=== PATIENT | male | born 1970 | race African-American/Black ===

== ENCOUNTER 2022-03-26 16:27 | Emergency (ER) | payer BC, SELFPAY ==
[2022-03-26 16:41] VITALS: BP 154/94; PULSE 109; RESP 16; TEMP 37.2; O2SAT 99
--- NOTE | 2022-03-26 16:42 | ED.URI ---
HPI - URI/Sore Throat General Chief Complaint: Upper Respiratory Infection Stated Complaint: Cough/Fever/Bodyache/Neck Pain Time Seen by Provider: 03/26/22 16:42 Source: patient Mode of arrival: ambulatory Limitations: no limitations History of Present Illness HPI Narrative: 52-year-old male presents with complaint of cough, nasal congestion, sore throat COVID body aches, chills and fever for 5 days. Reports that fever has resolved. Today he states that he coughed and strained left side of his neck. Has not taking any [id number] medications to treat his neck pain. Requesting stronger pain medication to treat his neck symptoms. Denies chest pain and shortness of breath. Taking Delsym to treat his cough. Ambulatory with steady gait. All systems reviewed and negative except as noted above. Related Data Allergies Allergy/AdvReac Type Severity Reaction Status Date / Time No Known Allergies Allergy Verified 03/26/22 16:38 Review of Systems Review of Systems: CONSTITUTIONAL: Denies fever, chills, or sweats. EYES: Denies visual changes, redness, or discharge. ENT: Reports rhinorrhea, congestion, sore throat. Denies otalgia. CARDIOVASCULAR: Denies chest pain, palpitations, or edema. RESPIRATORY: reports cough. Denies dyspnea. GASTROINTESTINAL: Denies abdominal pain, nausea, vomiting, or diarrhea. GENITOURINARY: Denies dysuria or hematuria. SKIN: Denies rash or itching. MUSCULOSKELETAL: Denies back pain, joint pain, or myalgia. NEUROLOGIC: Denies headache, numbness, or weakness. PSYCHIATRIC: Denies anxiety or depression. All other systems reviewed are negative, except as documented in HPI. PMFSH Comments At time of signature, agree with nursing past medical, surgical, social and family history. There is no relevant family history pertinent to the presenting complaint. Exam Narrative: GENERAL: This is a well-nourished, well-developed patient, in no apparent distress. HEAD: normocephalic, atraumatic. EYES: PERRL. Sclera clear/white. Vision is grossly intact. EARS: External ears normal, auditory canals clear and without drainage, TMs normal without perforation. Hearing grossly intact. NOSE: External nose normal with no obvious nasal discharge, nares without redness, no rhinorrhea. THROAT: Mucous membranes moist, erythema posterior pharynx. NECK: Neck supple, without lymphadenopathy, masses or thyromegaly. Tenderness and spasm to left trapezius muscle. Decreased range of motion due to pain. CARDIOVASCULAR: Regular rate and rhythm without murmurs, gallops, or rubs. RESPIRATORY: Clear to auscultation. Breath sounds equal bilaterally. No wheezes, rales, or rhonchi. SKIN: warm, Dry, intact with no suspicious lesions or rash, good texture and turgor. NEURO: awake, alert, and oriented to person, place and time. There were no obvious focal neurologic abnormalities. EXTREMITIES: No joint tenderness, effusion, or edema noted. Course Course Level of Care: Express Care Visit Vital Signs Vital signs: Vital Signs Temperature 37.2 C 03/26/22 16:41 Pulse Rate 109 H 03/26/22 16:41 Respiratory Rate 16 03/26/22 16:41 Blood Pressure 154/94 H 03/26/22 16:41 Pulse Oximetry 99 03/26/22 16:41 Oxygen Delivery Room Air 03/26/22 16:41 Temperature 37.2 C 03/26/22 16:41 Pulse Rate 109 H 03/26/22 16:41 Respiratory Rate 16 03/26/22 16:41 Blood Pressure 154/94 H 03/26/22 16:41 Pulse Oximetry 99 03/26/22 16:41 Oxygen Delivery Room Air 03/26/22 16:41 Reviewed MDM - URI/Sore Throat MDM Narrative Medical decision making narrative: Patient is aware of diagnosis, understands and agrees to treatment plan. Anticipatory guidance given. Patient agrees to follow-up as directed and is aware of reasons to seek care at the emergency department. Portions of this record may have been created with voice recognition software positive for COVID today. Discussed COVID diagnosis with patient. Lab Data
== END 2022-03-26 17:14 | disposition home or self-care (01) ==
PROVIDERS: Emergency Provider Nurse Practitioner Family; PCP Internal Medicine
DX: U07.1 COVID-19 (principal); S16.1XXA Strain of muscle, fascia and tendon at neck level, initial encounter; X58.XXXA Exposure to other specified factors, initial encounter
CPT/HCPCS: 87081; 87426; 87804; 87880; 99203; C9803; G0463

== ENCOUNTER → 2022-09-18 11:26 | Outpatient (CLI) | payer OTHER, SELFPAY ==
--- NOTE | ~2022-09-18 | XR_ITS ---
EXAMINATION: XR shoulder RT min 2V DATE: 09/18/2022 11:50 INDICATION: Right shoulder injury. TECHNIQUE: 4 views of right shoulder were obtained. COMPARISON: None. FINDINGS: Bone alignment is normal. No fracture. Joint spaces are well maintained. IMPRESSION: 1. Normal right shoulder. Reviewed, dictated and finalized at location A. IMPRESSION: 1. Normal right shoulder.
--- NOTE | ~2022-09-18 | XR_ITS ---
EXAM: XR lumbar spine 2-3V DATE: 09/18/2022 11:49 HISTORY: LOW BACK PAIN . COMPARISON: None available. FINDINGS: Mild scoliosis 5 nonrib-bearing lumbar-type vertebral bodies. Pedicles intact. 2 mm retroli sthesis at L3-4. Minimal anterior wedge deformity at L1, presumably physiologic. Vertebral body heigh ts preserved. Mild disc space narrowing at L4-5. Mild multilevel marginal osteophytosis. Mild lower l umbar facet arthropathy. No fracture or dislocation. IMPRESSION: Minimal, grade 1 retrolisthesis at L3-4. Mild multilevel lumbar degenerative disc disease and lower lumbar facet arthropathy. Reviewed, dictated and finalized at location K. IMPRESSION: Minimal, grade 1 retrolisthesis at L3-4. Mild multilevel lumbar deg enerative disc disease and lower lumbar facet arthropathy.
== END ==
PROVIDERS: PCP Family Medicine; Visit Provider Physician Assistant
DX: M54.50 Low back pain, unspecified (principal); M51.36 Other intervertebral disc degeneration, lumbar region; M47.816 Spondylosis without myelopathy or radiculopathy, lumbar region
CPT/HCPCS: 72100; 73030

== ENCOUNTER 2022-09-29 01:11 | Day surgery (SDC) | payer OTHER, SELFPAY ==
[2022-09-21 10:56] VITALS: BMI 25.3
--- NOTE | 2022-09-21 11:01 | PC.NURSE ---
Report to the Outpatient Waiting Room, entrance under the green pavilion located off [facility], at time 0630 on date 09/29/22. Planned Procedure Time: 0830. Time changes happen often and if your time is changed the preop area will call you the afternoon before. - You and your visitor will be asked to self-screen and do not enter if you have any COVID symptoms. - A mask is optional within the hospital at this time. Patients may have clear liquids (water, carbonated beverages, clear teas, apple juice) until 3 hours prior to surgery with a maximum of 20 ounces. - No food from midnight until time of surgery Take the following medications with a SIP of water the morning of surgery: N/A DO NOT STOP ANY OF YOUR OTHER PRESCRIPTION MEDICATIONS PRIOR TO SURGERY ?EXCEPT THE FOLLOWING Medications to discontinue per physician: N/A Date to take last dose: N/A Please no make-up, nail vietnamese, hairspray, perfume, deodorant, or body powder the day of surgery. No jewelry (including any body piercings) or valuables the day of surgery, leave them at home. Please take a shower or bath the night before, or the morning of, surgery with an antibacterial soap. Wear comfortable, loose fitting clothing. - Jewelry must be removed prior to entering the operating room. Rings and piercings that are not removed may be cut off. - The hospital will not accept responsibility for valuables. - Please leave all valuables, including medications, at home the day of surgery. If you are going home after surgery, a licensed hire car driver must drive you home. - NO public transportation without another adult if you receive anesthesia. - We recommend that an adult stay with you for 24 hours following discharge. - We also recommend that you do not drive, make important decision, drink alcoholic beverages, or take any drugs that were not prescribed by your health care provider for at least 24 hours after your discharge time. Follow any additional instructions given to you from your surgeon. If you or anyone in your household have experienced Covid symptoms in the past week, please notify your surgeon or the nurse liaison at the phone number below for possible testing. Telephone instructions given to PT - TOMMY NI and asked if any additional questions and then verbalized understanding. Patient advised to call surgeon office or pre surgery nurse liaison [phone] if any additional questions.
[2022-09-29 06:37] VITALS: BP 132/81; PULSE 68; RESP 16; TEMP 36.3; O2SAT 100
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
--- NOTE | 2022-09-29 08:29 | WPDHPUPDATE1 ---
History and Physical Update Update Date/Time: 09/29/22 08:29 History and Physical has been reviewed, including an updated exam of the patient. There are NO changes in the patient's condition. Risks, benefits, and alternatives have been discussed and questions answered. Patient agrees to proceed with procedure.
[2022-09-29] MEDS: LACTATED RINGERS 1,000 ML 30 ML IV CONT (08:45)
[2022-09-29] MEDS: ceFAZolin 2 GM/D5W 50 ML 2 GM/50 ML BAG IVPB (08:52)
[2022-09-29] MEDS: BUPIVACAINE/EPINEPHRINE 0.25% 50 ML VIAL 20 ML INFILTRATE (09:09)
[2022-09-29 09:30] VITALS: BP 126/64; PULSE 73; RESP 14; O2SAT 99
--- NOTE | 2022-09-29 09:42 | W.PM.PROC2 ---
Procedure Note - Detailed Date of Procedure 09/29/22 Pre-op Diagnosis skin cyst on back Post-op Diagnosis Same Procedure Performed Excision 2 cm skin cyst of the back with no margin, 5 cm layered closure Surgeon Donta Stroud MD Clinical Research Coordinator Venkat BRYAN Anesthesia General (G IV S) and Local (0.25% Marcaine with epinephrine) Indications Patient had an infected cyst on the right upper back lateral to the scapula. This was treated with doxycycline and has greatly reduced in size. It is no longer tender. He has had cyst like this before and they have had to be incised and drained. He would like to have this cyst removed to avoid potential infection or abscess in the future. He is taken to surgery now for that purpose. Findings Cyst seems smaller than it was in the office. It measured 2 cm in greatest diameter. There was no evidence of abscess. Description of Procedure Patient was taken to surgery. He was placed in left lateral decubitus position. The area of the cyst and the anticipated incision had been marked on the skin in the preoperative holding area. The area was prepped and draped. Local was infiltrated in to the anticipated ellipse around the cyst. The deeper subcutaneous tissues were infiltrated as well. The ellipse was created with the scalpel. We were careful to avoid getting into the cyst at the widest portion of the ellipse. We dissected through the skin and then excised the entire cyst with some subcutaneous tissue removing it completely with the overlying skin. I measured the cyst. Its widest dimension was 2 cm. I measured the wound defect and it was 5 cm in length. The wound went to the muscular fascia and involved some of the muscular fascia. I used the cautery to achieve hemostasis. A deeper layer of 3-0 Vicryl interrupted sutures were placed. Subcuticular interrupted 3-0 Vicryl sutures were used to loosely approximate the skin. Finally the skin was closed with a running 4-0 Monocryl skin suture. The wound was dressed with Exofin surgical adhesive. The patient was awakened and taken to recovery in good condition. Sponge needle counts were correct x2. Estimated Blood Loss -1 Drains No Packing No Pathology Yes (Skin cyst of the back) Complications No immediate complications Condition Stable Disposition Same day [facility] Billing Surgery - Charge Forward: Surgery Billing (Excision skin cyst of the back 2 cm, no margin. 5 cm layered closure.)
[2022-09-29 10:15] VITALS: BP 106/63; PULSE 61; RESP 16
== END 2022-09-29 10:30 | disposition home or self-care (01) ==
PROVIDERS: PCP Family Medicine; Visit Provider Surgery
PROC: (CPT 11402; principal; 2022-09-29 08:30)
DX: L72.9 Follicular cyst of the skin and subcutaneous tissue, unspecified (principal)
CPT/HCPCS: 11402; 12032; 88305; J0690; J2250; J2704; J3010; J7120

== ENCOUNTER 2022-12-15 00:42 | Day surgery (SDC) | payer OTHER, SELFPAY ==
--- NOTE | 2022-12-06 12:50 | PC.NURSE ---
Report to the Outpatient Waiting Room, entrance under the green pavilion located off [facility], at time 1130 on date 12/15/22. Planned Procedure Time: 1330. Time changes happen often and if your time is changed the preop area will call you the afternoon before. - You and your visitor will be asked to self-screen and do not enter if you have any COVID symptoms. - A mask is optional within the hospital at this time. Patients may have clear liquids (water, carbonated beverages, clear teas, apple juice) until 3 hours prior to surgery with a maximum of 20 ounces. - No food from midnight until time of surgery Take the following medications with a SIP of water the morning of surgery: N/A DO NOT STOP ANY OF YOUR OTHER PRESCRIPTION MEDICATIONS PRIOR TO SURGERY ?EXCEPT THE FOLLOWING Medications to discontinue per physician: N/A Date to take last dose: N/A Please no make-up, nail tajik, hairspray, perfume, deodorant, or body powder the day of surgery. No jewelry (including any body piercings) or valuables the day of surgery, leave them at home. Please take a shower or bath the night before, or the morning of, surgery with an antibacterial soap. Wear comfortable, loose fitting clothing. - Jewelry must be removed prior to entering the operating room. Rings and piercings that are not removed may be cut off. - The hospital will not accept responsibility for valuables. - Please leave all valuables, including medications, at home the day of surgery. If you are going home after surgery, a licensed residential driver must drive you home. - NO public transportation without another adult if you receive anesthesia. - We recommend that an adult stay with you for 24 hours following discharge. - We also recommend that you do not drive, make important decision, drink alcoholic beverages, or take any drugs that were not prescribed by your health care provider for at least 24 hours after your discharge time. Follow any additional instructions given to you from your surgeon. If you or anyone in your household have experienced Covid symptoms in the past week, please notify your surgeon or the nurse liaison at the phone number below for possible testing. Telephone instructions given to PT - TOMMY NI and asked if any additional questions and then verbalized understanding. Patient advised to call surgeon office or pre surgery nurse liaison [phone] if any additional questions.
[2022-12-06 12:52] VITALS: BMI 25.7
[2022-12-15] VITALS (8 sets, daily range): BP systolic 111–133; BP diastolic 62–81; PULSE 55–86; RESP 12–21; TEMP 36.7–36.8; O2SAT 100
[2022-12-15] MEDS: LACTATED RINGERS 1,000 ML 30 ML IV CONT (11:55)
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
--- NOTE | 2022-12-15 13:44 | WPDHPUPDATE1 ---
History and Physical Update Update Date/Time: 12/15/22 13:44 History and Physical has been reviewed, including an updated exam of the patient. There are NO changes in the patient's condition. Risks, benefits, and alternatives have been discussed and questions answered. Patient agrees to proceed with procedure.
[2022-12-15] MEDS: ceFAZolin 2 GM/D5W 50 ML 2 GM/50 ML BAG IVPB (13:52)
[2022-12-15] MEDS: KETOROLAC 30 MG/ML VIAL (*BKC) IV PUSH (14:07)
[2022-12-15] MEDS: BUPIVACAINE/EPINEPHRINE 0.5% 50 ML VIAL 20 ML INFILTRATE (14:14)
--- NOTE | 2022-12-15 14:30 | W.PM.PROC2 ---
Procedure Note - Detailed Date of Procedure 12/15/22 Pre-op Diagnosis right buttock cyst Post-op Diagnosis Same Procedure Performed excisional biopsy right buttock cyst measuring 3 x 2 cm Surgeon Celina Obando MD Anesthesia General and Local Indications 52-year-old male with a right buttock cyst over last few years. Patient reports cyst grows in size and occasionally drains causing discomfort. Findings 3 x 2 cm right buttock cyst Description of Procedure The patient was taken the operating room and placed in the lateral position. After adequate induction of general anesthesia, the patient was prepped and draped in the normal sterile fashion. A time-out was then done to verify the patient's identity, as well as the procedure being performed. I began by localizing the area and around the cystic mass in the right buttock. Of note, there was a punctate opening over the central area of this cyst of the there was no drainage. An elliptical incision was then made in the skin overlying the mass to include the opening. This incision was taken down to the subcutaneous tissue and a cystic mass was noted. I was able to bluntly and sharply dissect around this mass. I was then able to excise the mass in full. It will now be sent to pathology for further review and measured approximately 3 x 2 cm. I then copiously irrigated the cavity and no other pathology was noted. Hemostasis was gained with the Bovie cautery. I then closed the subcutaneous tissue with 3-0 Vicryl suture. The skin was closed with 4-0 Monocryl subcuticular suture. Dermabond was placed on the wound. The patient tolerated the procedure well and was extubated postoperatively. He will be transferred to the recovery room in stable condition. Estimated Blood Loss 5 Drains No Packing No Pathology Yes Complications No immediate complications Condition Stable Disposition PACU [facility] Billing Surgery - Charge Forward: Surgery Billing
[2022-12-15] MEDS: fentaNYL CITRATE INJ (*CRX) 100 MCG/2 ML VIAL 25 MCG IV PUSH ×2 (14:56→15:06)
== END 2022-12-15 16:25 | disposition home or self-care (01) ==
PROVIDERS: PCP Family Medicine; Visit Provider Surgery
PROC: (CPT 11406; principal; 2022-12-15 13:30)
DX: L72.0 Epidermal cyst (principal)
CPT/HCPCS: 11406; 12032; 88305; J0690; J1885; J2250; J2405; J2704; J3010; J7120

== ENCOUNTER 2024-04-29 19:24 | Emergency (ER) | payer OTHER, SELFPAY ==
--- OUTSIDE RECORDS SUMMARY | 2024-04-29 19:27 | XMS_ITS ---
Author Organization [facility] Address [address] [place] [address] Care Team Providers Care Contact Lens Blocker And Cutter Name Role Phone Unavailable Unavailable Unavailable Surgery Details Not on file Complications Check Surgery Details section. Procedure Estimated Blood Loss Check Surgery Details section. Procedure Findings Check Surgery Details section. Procedure Specimens Taken Check Surgery Details section.
--- OUTSIDE RECORDS SUMMARY | 2024-04-29 19:27 | XMS_ITS | Clinical Summary ---
Author Organization [facility] Address [facility] [place] [address] Care Team Providers Care Fish Processor Name Role Phone Gadiel Shearer MD Primary Care Provider [phone] Allergies No known active allergies Medications gabapentin (NEURONTIN) 300 MG capsule Take 1 capsule (300 mg total) by mouth 3 (three) times daily. 10/30/2021 Active ketorolac (TORADOL) 10 MG tablet 09/29/2022 Active omega-3 acid (FISH OIL) 1000 MG capsule Take 500 mg by mouth daily. Active HYDROcodone-caitlyn taminophen (NORCO) 5-325 MG tablet Take 1 tablet by mouth every 8 (eight) hours as needed. 09/22/2022 Active Active Problems Problem Noted Date Diagnosed Date Cubital tunnel syndrome on left 11/03/2022 Overview (11/03/2022): Added automatically from request for surgery [id number] Bilateral carpal tunnel syndrome 10/05/2022 Ulnar neuropathy of both upper extremities 10/05 Family History Medical History Relation Comments Colon Cancer Mother Diabetes type I Sister Relation Status Comments Mother Sister Social History Tobacco Use Types Packs/Day Years Used Date Smoking Tobacco: Never Passive Smoke Exposure: Past Smokeless Tobacco: Never Alcohol Use Standard Drinks/Week Comments Never 0 (1 standard drink = 0.6 oz pur e alcohol) PHQ-2 Answer Date Recorded Patient Health Questionnaire-2 Score 0 10/05/2022 Sex and Gender Information Value Date Recorded Sex Assigned at Not on file Legal Sex Male 6:54 PM CDT Gender Identity Not on file Sexual Orientation Not on file Last Filed Vital Signs Vital Sign Reading Time Taken Comments Blood Pressure 132/80 11/18/2022 9:58 AM CDT Pulse 75 11/01/2022 9:32 AM CDT Temperature 36.9 C (98.4 F) 10/11/2022 3:03 PM CDT Respiratory Rate 17 10/05/2022 8:28 AM CDT Oxygen Saturation 98% 10/11/2022 3:03 PM CDT Inhaled Oxygen Concentration - - Weight 104.5 kg (230 lb 6.4 oz) 11/01/2022 9:32 AM CDT Height 200.7 cm (6' 7 ) 11/01/2022 9:32 AM CDT Body Mass Index 25.96 11/01/2022 9:32 AM CDT Plan of Treatment Health Maintenance Due Date Last Done Comments Colorectal Cancer Screening Colonoscopy (10 Years) 1971 Annual Physical 1974 Hepatitis C 1989 Hepatitis B Vaccines (1 of 3 - 19+ 3-dose series) 1990 Zoster Vaccines (1 of 2) 2021 PHQ-2 (Physician [place]) 10/06/2023 10/05/2022 COVID-19 Vaccine ( season) 2023 12/14/2021, 03/10/2021, 09/10/2020, Additional history exists Influenza Adult (#1) 2023 01/26/2019 PHQ-2 (Physician [place]) 03/14/2024 10/05/2022 DTaP, Tdap and Td Vaccines (2 - Td or Tdap) 12/05/2030 12/05/2020 Meningococcal B Vaccine Aged Out No l onger eligible based on patient's age to complete this topic Meningococcal Vaccine Aged Out No alfreda deep eligible based on patient's age to complete this topic Pneumococcal Vaccine: Pediatrics (0 to 5 Years) and At-Risk Patients (6 to 64 Years) Aged Out No longer eligible based on patient's age to complete this topic RSV Immunizations Under 20 Months Aged Out No longer eligible based on patient's age to complete this topic Insurance [facility] Care Teams Fish Processor Relationship Specialty Start Date End Date Gadiel Shearer MD [address] [address] PCP - General FAMILY PRACTICE 10/05/22
--- OUTSIDE RECORDS SUMMARY | 2024-04-29 19:27 | XMS_ITS | Encounter Summary ---
Author Organization [facility] Facility Care Team Providers Care Customer Sales Distributor Name Role Phone Do Chowdary MD Primary Care Provider [phone] Gadiel Shearer MD Primary Care Provider [phone] Encounter Details Date Type Department Care Team (Latest Contact Info) Description 11/11/2015 Orders Only [facility] CLINCONV ProviderGinette MD [address] [place] [id number] Social History Tobacco Use Types Packs/Day Years Used Date Smoking Tobacco: Never Sex and Gender Information Value Date Recorded Sex Assigned at Not on file Legal Sex Male 3:08 AM HANDER IN Gender Identity Not on file Sexual Orientation Not on file documented as of this encounter Plan of Treatment Upcoming Encounters Date Type Department Care Team (Latest Contact Info) Description 05/01/2024 10:15 AM HANDER IN Hospital Encounter [facility] [place] [address] [place] [id number] Ramesh Lang MD [address] [place] [address] DR THOMPSON [address] [place] [id number] 05/01/2024 10:15 AM HANDER IN - 05/01/2024 11:15 AM HANDER IN Surgery [facility] [place] [address] [place] [phone] Ramesh Lang MD [address] [place] [address] [place] [address] LEFT ELBOW MASS EXCISION Scheduled Procedures Name Priority Associated Diagnoses Date/Ti me EXCISION CYST/LESION/MASS - ARM Elbow mass, left Mass of finger of right hand 05/01/2024 10:15 AM HANDER IN EXCISION CYST/LESION/MASS - FINGER Elbow mass, left Mass of finger of right hand 05/01/2024 10:15 AM HANDER IN documented as of this encounter Procedures Procedure Name Priority Date/Time Associated Diagnosis Comments COLONOSCOPY - SCAN 11/11/2015 12 :00 AM CDT documented in this encounter Results * COLONOSCOPY - SCAN (11/11/2015 12:00 AM CDT) Narrative 11/11/2015 12:00 AM CDT Ordered by an unspecified provider. Historical Provider Final Res ult documented in this encounter Visit Diagnoses Not on filedocumented in this encounter Care Teams Customer Sales Distributor Relationship Specialty Start Date End Date Do Chowdary MD [address] [facility] [address] [place] [address] PCP - General Internal Medicine 12/13/20 09/21/22 Gadiel Shearer MD [address] [place] [address] PCP - General Family Medicine 09/22/22 documented as of this encounter
--- OUTSIDE RECORDS SUMMARY | 2024-04-29 19:27 | XMS_ITS | Encounter Summary ---
Author Organization [facility] Healthcare Address [address] [place] [address] Care Team Providers Care Asbestos Wire Finisher Name Role Phone Gadiel Shearer MD Primary Care Provider [phone] Reason for Visit * Reason Onset Date Comments work note 04/26/2024 Encounter Details Date Type Department Care Team (Late st Contact Info) Description 04/26/2024 Telephone [facility] Medical Group Hand Surgery [facility] [address] [place] [phone] Ramesh Lang MD [facility] [address] [id number] work note Social History Tobacco Use Types Packs/Day Years Used Date Smoking Tobacco: Never Smokeless Tobacco: Never Alcohol Use Standard Drinks/Week Comments Never 0 (1 standard drink = 0.6 oz pur e alcohol) AUDIT-C Answer Date Recorded Q1: How often do you have a drink containing alcohol? Never 04/24/2024 Q2: How many drinks containi ng alcohol do you have on a typical day when you are drinking? Patient does not drink Q3: How often do you have si x or more drinks on one occasion? Never 04/24/2024 PHQ-2 Answer Date Recorded PHQ-2 Total Score (If total score is 3 or more points, staff should administer the PHQ-9) 0 12/02/2023 Personal Safety Answer Date Recorded Have you ever been in or are you currently in a harmful physical or emotional relationship or is someone making you feel afraid or unsafe? Denies 02/07/2023 Sex and Gender Information Value Date Recorded Sex Assigned at Not on file Legal Sex Male 3:08 AM SILK SCREEN PRINTER HELPER Gender Identity Not on file Sexual Orientation Not on file documented as of this encounter Miscellaneous Notes * Telephone Encounter - Alivia Bruno MA - 04/27/2024 6:51 AM CST This was done. SCREEN PRINTER HELPER * Telephone Encounter - Coreen Feldman - 04/26/2024 11:02 AM CST Pt needs a note faxed to his employer stating he will be having hand surg may 01-may 14- Needs this done today or tomorrow SCREEN PRINTER HELPER documented in this encounter Plan of Treatment Upcoming Encounters Date Type Department Care Team (Latest Contact Info) Description 05/01/2024 10:15 AM SILK SCREEN PRINTER HELPER Hospital Encounter [facility] [place] [address] [place] [phone] Ramesh Lang MD [address] [place] [address] [address] TH[address]ON [address] [place] [phone] 05/01/2024 10:15 AM SILK SCREEN PRINTER HELPER - 05/01/2024 11:15 AM SILK SCREEN PRINTER HELPER Surgery [facility] [place] [address] [place] [phone] Ramesh Lang MD [address] [place] [address] [address] TH[address]ON [address] [place] [address] LEFT ELBOW MASS EXCISION Scheduled Procedures Name Priority Associated Diagnoses Date/Ti wv EXCISION CYST/LESION/MASS - ARM Elbow mass, left Mass of finger of right hand 05/01/2024 10:15 AM SILK SCREEN PRINTER HELPER EXCISION CYST/LESION/MASS - FINGER Elbow mass, left Mass of finger of right hand 05/01/2024 10:15 AM SILK SCREEN PRINTER HELPER documented as of this encounter Visit Diagnoses Not on filedocumented in this encounter Care Teams Asbestos Wire Finisher Relationship Specialty Start Date End Date Gadiel Shearer MD [address] [facility] [address] [address] PCP - General Family Medicine 09/22/22 documented as of this encounter
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
--- OUTSIDE RECORDS SUMMARY | 2024-04-29 19:27 | XMS_ITS | Encounter Summary ---
Author Organization [facility] Address [address] [place] [address] Care Team Providers Care Oven Attendant Name Role Phone Gadiel Shearer MD Primary Care Provider [phone] Reason for Referral * Cardiology (Routine) - Authorized Specialty Diagnoses / Procedures Referred By Contac t Referred To Contact Diagnoses Pre-op testing Procedures ECG 12 lead Abdelrahman Lorenzo MD [address] [place] [address] Phone: tel:[phone] fax: [address] [phone] Referral ID Status Reason Start Date Expiration Date V isits Requested Visits Authorized [id number] Authorized 04/27/2024 05/27/2025 1 1 TS SPECIALIST Encounter Details Date Type Department Care Team (Late st Contact Info) Description 04/27/2024 Orders Only [facility] Pre Admit Testing [address] [place] [phone] Génesis Perez RN Pre-op testing (Primary Dx) Social History Tobacco Use Types Packs/Day Years [...] on file Legal Sex Male 3:08 AM SPORTS SPECIALIST Gender Identity Not on file Sexual Orientation Not on file documented as of this encounter Plan of Treatment Upcoming Encounters Date Type Department Care Team (Latest Contact Info) Description 05/01/2024 10:15 AM SPORTS SPECIALIST Hospital Encounter [facility] [place] [address] [place] [address] Ramesh Lang MD [facility] [address] [place] [address] 05/01/2024 10:15 AM SPORTS SPECIALIST - 05/01/2024 11:15 AM SPORTS SPECIALIST Surgery [facility] [place] [address] [place] [address] Ramesh Lang MD [facility] [address] [place] [phone] LEFT ELBOW MASS EXCISION Scheduled Orders Name Type Priority Associated Diagnoses Orde r Schedule ECG 12 lead ECG Routine Pre-op testing Expected: 04/30/2024, Expires: 04/27/2025 Scheduled Procedures Name Priority Associated Diagnoses Date/Ti me EXCISION CYST/LESION/MASS - ARM Elbow mass, left Mass of finger of right hand 05/01/2024 10:15 AM SPORTS SPECIALIST EXCISION CYST/LESION/MASS - FINGER Elbow mass, left Mass of finger of right hand 05/01/2024 10:15 AM SPORTS SPECIALIST documented as of this encounter Visit Diagnoses Diagnosis Mass of finger of right hand- Primary Localized superficial swelling, mass, or lump Elbow mass, left Pre-op testing- Primary Unspecified pre-operative examination Elbow mass, left Mass of finger of right hand Localized superficial swelling, mass, or lump documented in this encounter Care Teams Oven Attendant Relationship Specialty Start Date End Date Gadiel Shearer MD [address] [facility] [address] [place] [address] [place] [id number] PCP - General Family Medicine 09/22/22 documented as of this encounter
--- OUTSIDE RECORDS SUMMARY | 2024-04-29 19:27 | XMS_ITS | Clinical Summary ---
Author Organization [facility] Address [address] [place] [address] Care Team Providers Care Head Of Physics Name Role Phone Unavailable Primary Care Provider Unavailabl e Allergies No known active allergies Medications cetirizine 10 mg capsule Take 10 mg by mouth 1 (one) time each day. Active omega-3 fatty acids 500 mg capsule Take 1,000 mg by mouth 1 (one) time each day. Active cyclobenzaprine (FLEXERIL) 10 mg tablet Take 10 mg by mouth. 10/02/2020 Active baclofen (LIORESAL) 10 mg tablet Take 10 mg by mouth in the morning and at bedtime. 06/17/2021 Active meloxicam (MOBIC) 7.5 mg tablet Take 7.5 mg by mouth 1 (one) time each day if needed. 06/17/2021 Active gabapentin (NEURONTIN) 300 mg capsule Take 300 mg by mouth in the morning and 300 mg at noon and 300 mg in the evening. 10/30/2021 Active Active Problems Problem Noted Date Diagnosed Date Family history of colon cancer 10/15/2020 Overview (11/19/2020): Added automatically from request for surgery [id number] Annual physical exam 09/29/2020 Cyst of skin and subcutaneous tissue 09/12/2019 Neck pain 07/10/2019 Chronic rhinitis 04/04/2018 Insomnia 04/04/2018 Anemia 06/03/2015 Unspecified urinary incontinence 06/03/2015 Immunizations Immunization Administration Dates Next Due COVID-19, mRNA, LNP-S, PF, 1 00 mcg/0.5mL dose or 50 mcg/0.25mL dose 09/10/2020,08/13/2020 Hep A, adult 02/11/2014 Influenza, unspecified 01/26/2019 Social History Tobacco Use Types Packs/Day Years Used Date Smoking Tobacco: Never Assessed Sex and Gender Information Value Date Recorded Sex Assigned at Not on file Legal Sex Male 9:04 PM PDT Gender Identity Not on file Sexual Orientation Not on file Last Filed Vital Signs Vital Sign Reading Time Taken Comments Blood Pressure 117/75 11/10/2021 5:24 PM CDT Pulse 64 11/10/2021 5:24 PM CDT Temperature 35.6 C (96.1 F) 09/02/2020 6:08 PM CDT Respiratory Rate - - Oxygen Saturation - - Inhaled Oxygen Concentration - - Weight - - Height - - Body Mass Index - - Plan of Treatment Health Maintenance Due Date Last Done Comments Dental X-Ray: Bitewings 10/13/2021 04/14/2021 Scaling and Root Planing 12/16/2021 020, 12/03/2019, 11/13/2019, Additional history exists Periodontal Maintenance 02/11/2022 11/11/19 22, 04/14/2021, 09/02/2020, Additional history exists Dental Oral Exam 05/12/2022 11/10/2021, 03/2021, 09/02/2020, Additional history exists Dental X-Ray: Full Mouth 07/31/2023 07/29/2020, 0911/2019 Dental X-Ray: Panoramic 07/31/2023 07/29/2020, 11/20 Meningococcal B Vaccine Aged Out No l onger eligible based on patient's age to complete this topic Procedures Procedure Name Priority Date/Time Associated Diagnosis Comments PERIODIC ORAL EVALUATION - ESTABLISHED PATIENT Routine 11/10/2021 5:00 PM CDT PERIO MAINTENANCE Routine 11/10/2021 5:0 0 PM CDT LR PERIODONTAL SCALING AND ROOT PLANING - FOUR OR MORE TEETH PER QUADRANT Routine 12/03/2019 2:00 AM CDT PANORAMIC RADIOGRAPHIC IMAGE Routine 11/21/2019 2:00 AM CDT INTRAORAL - COMPREHENSIVE SERIES OF RADIOGRAPHIC IMAGES Routine 11/21/2019 2:00 AM CDT from Last 3 Months or Most Recently Relevant to Health Maintenance Insurance PPO
--- OUTSIDE RECORDS SUMMARY | 2024-04-29 19:27 | XMS_ITS | CCD ---
Author Organization [facility] Address [address] [place] [address] Care Team Providers Care Business Librarian Name Role Phone Unavailable Primary Care Provider [...] (11/19/2020): Added automatically from request for surgery [id number] Annual physical exam 09/29/2020 Cyst of skin [...] Mass Index - - Plan of Treatment Not on file Procedures Procedure Name Priority Date/Time Associated Diagnosis [...]
--- OUTSIDE RECORDS SUMMARY | 2024-04-29 19:27 | XMS_ITS | Encounter Summary ---
Author Organization [facility] Facility Care Team Providers Care Oil Change Technician Name Role Phone Do Chowdary MD Primary Care Provider [phone] Gadiel Sheraer MD Primary Care Provider [phone] Encounter Details Date Type Department Care Team (Latest Contact Info) Description 05/22/2015 Orders Only [facility] ProviderGinette MD [address] [place] [address] Social History Tobacco Use Types Packs/Day Years Used Date Smoking Tobacco: Never Assessed Sex and Gender Information Value Date Recorded Sex Assigned at Not on file Legal Sex Male 3:08 AM PRACTICE DIRECTOR Gender Identity Not on file Sexual Orientation Not on file documented as of this encounter Plan of Treatment Upcoming Encounters Date Type Department Care Team (Latest Contact Info) Description 05/01/2024 10:15 AM [facility] Hospital Encounter [facility] OR [address] [place] [address] Ramesh Lang MD [address] [place] [address] [address] [place] [address] 05/01/2024 10:15 AM PRACTICE DIRECTOR - 05/01/2024 11:15 AM [facility] Surgery [facility] OR [address] [place] [address] Ramesh Lang MD [address] [place] [address] [place] [address] LEFT ELBOW MASS EXCISION Scheduled Procedures Name Priority Associated Diagnoses Date/Ti me EXCISION CYST/LESION/MASS - ARM Elbow mass, left Mass of finger of right hand 05/01/2024 10:15 AM PRACTICE DIRECTOR EXCISION CYST/LESION/MASS - FINGER Elbow mass, left Mass of finger of right hand 05/01/2024 10:15 AM PRACTICE DIRECTOR documented as of this encounter Procedures Procedure Name Priority Date/Time Associated Diagnosis Comments SCAN - LABS 05/23/2015 12:00 AM PRACTICE DIRECTOR documented in this encounter Results * SCAN - LABS (05/23/2015 12:00 AM PRACTICE DIRECTOR) Narrative 05/23/2015 12:00 AM PRACTICE DIRECTOR Ordered by an unspecified provider. us Historical Provider Final Res ult documented in this encounter Visit Diagnoses Not on filedocumented in this encounter Care Teams Oil Change Technician Relationship Specialty Start Date End Date Do Chowdary MD [address] [facility] [address] [place] [address] PCP - General Internal Medicine 12/13/20 09/21/22 Gadiel Shearer MD [address] [address] PCP - General Family Medicine 09/22/22 documented as of this encounter
--- OUTSIDE RECORDS SUMMARY | 2024-04-29 19:27 | XMS_ITS | Encounter Summary ---
Author Organization [facility] Address [address] [place] [address] Care Team Providers Care Environmental Scientists Name Role Phone Unavailable Primary Care Provider Unavailabl e Prior Encounters Date Type Department Care Team Description 11/10/2021 5:00 PM CDT Office Visit [facility] [address] [place] [address] Duane Delgado DDS 11/10/2021 5:00 PM CDT Office Visit [facility] [address] [place] [address] Sharlene Gracia, [facility] 09/22/2021 4:00 PM CDT Office Visit [facility] [address] [place] [address] Duane Delgado DDS 07/07/2021 Travel 07/07/2021 5:00 PM CDT Office Visit [facility] [address] [place] [address] Katie Rey, DANIA 06/16/2021 5:00 PM CDT Office Visit [facility] [address] [place] [address] Katie Rey DMD 04/14/2021 Travel 04/14/2021 6:00 PM MEDICAL INVESTIGATOR Office Visit [facility] [address] [place] [address] Katie Rey DMD 04/14/2021 6:00 PM MEDICAL INVESTIGATOR Office Visit [facility] [address] [place] [address] Sharlene Gracia, [facility] 12/02/2020 Travel 12/02/2020 4:30 PM CDT Office Visit [facility] [address] [place] [address] Katie Rey, DMD 11/19/2020 Travel 11/19/2020 1:30 PM CDT Office Visit [facility] [address] [place] [address] Katie Rey, DMD 09/02/2020 Travel 09/02/2020 6:00 PM CDT Office Visit [facility] [address] [place] [address] Sharlene Gracia, [facility] 09/02/2020 6:00 PM CDT Office Visit [facility] [address] [place] [address] Katie Rey, DMD 04/02/2019 Converted 13x Documents [facility] [address] [place] [address] <No scans attached> 04/02/2019 Converted 13x Documents [facility] [address] [place] [phone] <No scans attached> 04/02/2019 Converted CPS Chart Documents [facility] [address] [place] [phone] <No scans attached> 04/02/2019 Converted 13x Documents [facility] [address] [place] [phone] <No scans attached> Last Filed Vital Signs Vital Sign Reading [...] Procedure Name Priority Date/Time Associated Diagnosis Comments UR ANTIBACT IRR/QUAD Routine 11/10/2021 5:00 PM CDT EVA DECON Routine 11/10/2021 5:00 PM CDT UL ANTIBACT IRR/QUAD Routine 11/10/2021 5:00 PM CDT LL ANTIBACT IRR/QUAD Routine 11/10/2021 5:00 PM CDT LR ANTIBACT IRR/QUAD Routine 11/10/2021 5:00 PM CDT TOPICAL APPLICATION OF FLUORIDE VARNISH Routine 11/10/2021 5:00 PM CDT ORAL HYGIENE INSTRUCTIONS Routine 2021 5:00 PM CDT PERIO MAINTENANCE Routine 11/10/2021 5:0 0 PM CDT PERIODIC ORAL EVALUATION - ESTABLISHED PATIENT Routine 11/10/2021 5:00 PM CDT 3 REDO FILLINGS Routine 09/22/2021 4:00 PM CDT 29 DO RESIN-BASED COMPOSITE - TWO SURFACES, POSTERIOR Routine 07/07/2021 5:00 PM CDT 30 MO RESIN-BASED COMPOSITE - TWO SURFACES, POSTERIOR Routine 07/07/2021 5:00 PM CDT 20 DO RESIN-BASED COMPOSITE - TWO SURFACES, POSTERIOR Routine 06/16/2021 5:00 PM CDT 15 MOL RESIN-BASED COMPOSITE - THREE SURFACES, POSTERIOR Routine 06/16/2021 5:00 PM CDT PERIODIC ORAL EVALUATION - ESTABLISHED PATIENT Routine 04/14/2021 6:00 PM MEDICAL INVESTIGATOR TOPICAL APPLICATION OF FLUORIDE VARNISH Routine 04/14/2021 6:00 PM MEDICAL INVESTIGATOR ORAL HYGIENE INSTRUCTIONS Routine 2021 6:00 PM MEDICAL INVESTIGATOR PERIO MAINTENANCE Routine 04/14/2021 6:0 0 PM MEDICAL INVESTIGATOR BITEWINGS - FOUR RADIOGRAPHIC IMAGES Routine 04/14/2021 6:00 PM MEDICAL INVESTIGATOR NC X-RAY Routine 12/02/2020 4:30 PM CDT 3 CEMENT CROWN Routine 12/02/2020 4:30 PM CDT 3 CORE BUILDUP, INCLUDING ANY PINS WHEN REQUIRED Routine 11/19/2020 1:30 PM CDT 3 CERECFIRED CROWNPOST Routine 1:30 PM CDT 5 MOD RESIN-BASED COMPOSITE - THREE SURFACES, POSTERIOR Routine 11/19/2020 1:30 PM CDT OFFICE VISIT FOR OBSERVATION (DURING REGULARLY SCHEDULED HOURS) - NO OTHER SERVICES PERFORMED Routine 09/02/2020 6:00 PM CDT PERIODIC ORAL EVALUATION - ESTABLISHED PATIENT Routine 09/02/2020 6:00 PM CDT ORAL HYGIENE INSTRUCTIONS Routine 2020 6:00 PM CDT TOPICAL APPLICATION OF FLUORIDE VARNISH Routine 09/02/2020 6:00 PM CDT PERIO MAINTENANCE Routine 09/02/2020 6:0 0 PM CDT PERIO MAINTENANCE Routine 04/26/2020 2:0 0 AM MEDICAL INVESTIGATOR ORAL HYGIENE INSTRUCTIONS Routine 2020 2:00 AM MEDICAL INVESTIGATOR 19 EXTRACTION, ERUPTED TOOTH REQUIRING REMOVAL OF BONE AND/OR SECTIONING OF TOOTH Routine 03/19/2020 2:00 AM MEDICAL INVESTIGATOR 14 EXTRACTION, ERUPTED TOOTH REQUIRING REMOVAL OF BONE AND/OR SECTIONING OF TOOTH Routine 03/19/2020 2:00 AM MEDICAL INVESTIGATOR 12 EXTRACTION, ERUPTED TOOTH REQUIRING REMOVAL OF BONE AND/OR SECTIONING OF TOOTH Routine 03/19/2020 2:00 AM MEDICAL INVESTIGATOR OFFICE VISIT FOR OBSERVATION (DURING REGULARLY SCHEDULED HOURS) - NO OTHER SERVICES PERFORMED Routine 03/19/2020 2:00 AM MEDICAL INVESTIGATOR MISSED APPOINTMENT Routine 03/10/2020 2: 00 AM MEDICAL INVESTIGATOR UR PERIODONTAL SCALING AND ROOT PLANING - FOUR OR MORE TEETH PER QUADRANT Routine 12/03/2019 2:00 AM CDT LR PERIODONTAL SCALING AND ROOT PLANING - FOUR OR MORE TEETH PER QUADRANT Routine 12/03/2019 2:00 AM CDT ORAL HYGIENE INSTRUCTIONS Routine 2019 2:00 AM CDT UR ANTIBACT IRR/QUAD Routine 12/03/2019 2:00 AM CDT LR ANTIBACT IRR/QUAD Routine 12/03/2019 2:00 AM CDT TOPICAL APPLICATION OF FLUORIDE VARNISH Routine 12/03/2019 2:00 AM CDT PANORAMIC RADIOGRAPHIC IMAGE Routine 11/21/2019 2:00 AM CDT INTRAORAL - COMPREHENSIVE SERIES OF RADIOGRAPHIC IMAGES Routine 11/21/2019 2:00 AM CDT INTRAORAL PHOTO Routine 11/21/2019 2:00 AM CDT INTRAORAL PHOTO Routine 11/21/2019 2:00 AM CDT INTRAORAL PHOTO Routine 11/21/2019 2:00 AM CDT INTRAORAL PHOTO Routine 11/21/2019 2:00 AM CDT 14 MOL AMALGAM 3 SURFACE Routine 2:00 AM CDT 4 CORE BUILDUP, INCLUDING ANY PINS WHEN REQUIRED Routine 11/13/2019 2:00 AM CDT 15 LO AMALGAM 2 SURFACE Routine 11/13/19 20 2:00 AM CDT 31 O AMALGAM 1 SURFACE Routine 0 2:00 AM CDT 20 O AMALGAM 1 SURFACE Routine 0 2:00 AM CDT 16 O AMALGAM 1 SURFACE Routine 0 2:00 AM CDT 4 ENDODONTIC THERAPY, PREMOLAR TOOTH (EXCLUDING FINAL RESTORATIONISM) Routine 11/13/2019 2:00 AM CDT 4 CROWN PFM POST Routine 11/13/2019 2:00 AM CDT COMPREHENSIVE ORAL EVALUATION - NEW OR ESTABLISHED PATIENT Routine 11/13/2019 2:00 AM CDT UL PERIODONTAL SCALING AND ROOT PLANING - FOUR OR MORE TEETH PER QUADRANT Routine 11/13/2019 2:00 AM CDT LL PERIODONTAL SCALING AND ROOT PLANING - FOUR OR MORE TEETH PER QUADRANT Routine 11/13/2019 2:00 AM CDT ORAL HYGIENE INSTRUCTIONS Routine 2019 2:00 AM CDT UL ANTIBACT IRR/QUAD Routine 11/13/2019 2:00 AM CDT LL ANTIBACT IRR/QUAD Routine 11/13/2019 2:00 AM CDT OFFICE VISIT FOR OBSERVATION (DURING REGULARLY SCHEDULED HOURS) - NO OTHER SERVICES PERFORMED Routine 11/13/2019 2:00 AM CDT 30 MO COMPOSITE FILLING Routine 11/13/19 20 2:00 AM CDT 29 DO COMPOSITE FILLING Routine 11/13/19 20 2:00 AM CDT 3 MO COMPOSITE FILLING Routine 0 2:00 AM CDT 2 LO COMPOSITE FILLING Routine 0 2:00 AM CDT 1 LO COMPOSITE FILLING Routine 0 2:00 AM CDT 19 O COMPOSITE FILLING Routine 0 2:00 AM CDT 18 O COMPOSITE FILLING Routine 0 2:00 AM CDT MISSED APPOINTMENT Routine 11/06/2019 2: 00 AM CDT CANCELLED APPOINTMENT Routine 10/11/2019 2:00 AM CDT Visit Diagnoses Not on file Insurance O
--- OUTSIDE RECORDS SUMMARY | 2024-04-29 19:27 | XMS_ITS | Referral Summary ---
Author Organization [facility] Address [address] [place] [address] Care Team Providers Care Construction Equipment Operator Name Role Phone Gadiel Shearer MD Primary Care Provider [phone] Encounters Date Type Department Care Team Description 04/27/2024 Orders Only [facility] Pre Admit Testing [address] [place] [address] Génesis Perez RN Pre-op testing (Primary Dx) 04/26/2024 Telephone [facility] Hand Surgery [address] [facility] [address] [place] [phone] Ramesh Lang MD work note 04/25/2024 Telephone [facility] Hand Surgery [address] [place] [address] Ramesh Lang MD [facility] paperwork 04/23/2024 Telephone [facility] Hand Surgery [address] [place] [address] [address] [place] [address] Ramesh Lang MD [facility] status 04/18/2024 Telephone [facility] Orthopedics and Sports Medicine [address] [place] [address] [address] [place] [address] Ramesh Lang MD [facility] 04/18/2024 7:30 AM CASCARA BARK CUTTER Office Visit [facility] Hand Surgery [address] [place] [address] [address] [place] [phone] Ramesh Lang MD Elbow mass, left (Primary Dx); Pyogenic granuloma 03/28/2024 7:30 AM CASCARA BARK CUTTER Office Visit [facility] Medical [facility] Hand Surgery [address] [place] [address] Ramesh Lang MD Left elbow pain (Primary Dx); Elbow mass, left; Pyogenic granuloma 03/15/2024 7:26 AM CASCARA BARK CUTTER - 03/15/2024 11:59 PM CASCARA BARK CUTTER Hospital Encounter [facility] MRI [address] [place] [address] Left elbow pain Discharge Disposition: Discharge to home or self care 02/24/2024 Telephone [facility] Family Medicine at [address] [address] Gadiel Shearer MD Recommendation Request 02/08/2024 8:24 AM CASCARA BARK CUTTER - 02/08/2024 11:59 PM CASCARA BARK CUTTER Hospital Encounter [facility] Diag Imaging [address] [place] [address] Left elbow pain Discharge Disposition: Discharge to home or self care 02/08/2024 7:45 AM CASCARA BARK CUTTER Office Visit [facility] Hand Surgery [address] [place] [address] Ramesh Lang MD Left elbow pain (Primary Dx); Avulsion of skin of finger, subsequent encounter; Elbow mass, left 02/01/2024 7:30 AM CASCARA BARK CUTTER Office Visit [facility] Hand Surgery [address] [place] [address] Ramesh Lang MD Avulsion of skin of finger, sequela from Last 3 Months Allergies Active Allergy Reactions Criticality Noted Date [...] (10/15/2020): Added automatically from request for surgery [id number] Chronic rhinitis 04/04/2018 Insomnia 04/04/2018 Anemia 06/03/2015 Unspecified urinary incontinence 06/03/2015 Resolved Problems Problem Noted Date Diagnosed Date Resolved Date Annual physical exam 09/29/2020 023 Cyst of skin and subcutaneous tissue 09/12/2019 09/22/2022 Neck pain 07/10/2019 09/22/2022 Shortness of breath 04/19/2019 07/12/19 20 Immunizations Immunization Administration Dates Next Due COVID-19 MRNA (MODERNA) .5 M L (50 MCG) VACCINE (12 YEARS AND UP) 12/20/2023 Hep A, Adult 02/11/2014 Influenza, Unspecified 01/26/2024(Deferr ed: Patient Refused),01/09/2024(Deferred: Patient Refused),01/26/2023(Deferred: Patient Refused),12/12/2022(Deferred: Patient Refused),12/12/2022(Deferred: Patient decision),12/12/2022(Deferred: Patient Refused),12/12/2022(Deferred: Patient Refused),01/10/2022(Deferred: Patient Refused),12/12/2021(Deferred: Patient Refused),01/26/2019 Moderna SARS-CoV-2 Monovalen t Vaccination (12+ YRS) 09/10/2020,08/13/2020 Tdap 12/05/2020 Social History Tobacco Use Types Packs/Day Years [...] on file Legal Sex Male 3:08 AM CASCARA BARK CUTTER Gender Identity Not on file Sexual Orientation Not on file Last Filed Vital Signs Vital Sign Reading Time Taken Comments Blood Pressure 114/68 01/26/2024 10:37 AM CASCARA BARK CUTTER Pulse 70 01/26/2024 10:37 AM CASCARA BARK CUTTER Temperature 36.2 C (97.1 F) 01/26/2024 10:37 AM CASCARA BARK CUTTER Respiratory Rate 18 01/26/2024 10:37 AM CASCARA BARK CUTTER Oxygen Saturation 97% 01/26/2024 10:37 AM CASCARA BARK CUTTER Inhaled Oxygen Concentration - - Weight 102.1 kg (225 lb) 04/24/2024 12:01 PM CASCARA BARK CUTTER Height 200.7 cm (6' 7 ) 04/24/2024 12:01 PM CASCARA BARK CUTTER Body Mass Index 25.35 04/24/2024 12:01 PM CASCARA BARK CUTTER Plan of Treatment Upcoming Encounters Date Type Department Care Team (Latest Contact Info) Description 05/01/2024 10:15 AM CASCARA BARK CUTTER Hospital Encounter [facility] OR [address] [place] [address] Ramesh Lang MD [address] [facility] [address] [place] [address] 05/01/2024 10:15 AM CASCARA BARK CUTTER - 05/01/2024 11:15 AM CASCARA BARK CUTTER Surgery [facility] OR [address] [place] [address] Ramesh Lang MD [facility] [facility] [address] [place] [address] LEFT ELBOW MASS EXCISION Scheduled Procedures Name Priority Associated Diagnoses Date/Ti me EXCISION CYST/LESION/MASS - ARM Elbow mass, left Mass of finger of right hand 05/01/2024 10:15 AM CASCARA BARK CUTTER EXCISION CYST/LESION/MASS - FINGER Elbow mass, left Mass of finger of right hand 05/01/2024 10:15 AM CASCARA BARK CUTTER Medical Devices Implanted Type Area Video Recorder Mechanic Device Identifier Shelf Expiration Date Model / Serial / Lot [employer]/C R Bard Mesh Surgical Inguinal Hernia Synthetic Patch 3dmax 4x6in [id number] - [id number] Implanted:Qty: 1 on 02/07/2023 by Gerry Evans MD at [facility] Mesh Left: Inguinal [employer]/C R Bard [id number] 12/09/2026 [id number] / / [id number] Procedures Procedure Name Priority Date/Time Associated Diagnosis Comments MI ARTHROCENTESIS ASPIR&/INJ INTERM JT/BURS W/O US Routine 03/28/2024 7:30 AM CASCARA BARK CUTTER Left elbow pain Elbow mass, left MRI ELBOW LEFT W WO CONTRAST Schedule Routine, Read Routine (OP Routine) 03/15/2024 9:15 AM CASCARA BARK CUTTER Left elbow pain XR ELBOW LEFT 3 OR MORE VIEWS Schedule Routine, Read Routine (OP Routine) 02/08/2024 8:38 AM CASCARA BARK CUTTER Left elbow pain COLONOSCOPY Routine 12/01/2023 8:23 AM CDT PSA SCREEN Routine 09/25/2022 6:31 AM CDT Screening for prostate cancer HEPATITIS C ANTIBODY Routine 12/13/2020 7:24 AM CDT from Last 3 Months or Most Recently Relevant to Health Maintenance Results * MI ARTHROCENTESIS ASPIR&/INJ INTERM JT/BURS W/O US (03/28/2024 7:30 AM CASCARA BARK CUTTER) Narrative Ramesh Lang MD - 03/28/2024 7:30 AM CASCARA BARK CUTTER Ramesh Lang MD 03/28/2024 8:25 AM Medium [...] Left W WO Contrast (03/15/2024 9:15 AM CASCARA BARK CUTTER) Anatomical Region Laterality Modality Upper Extremities Left Magnetic Reson ance 03/15/2024 1:02 PM CASCARA BARK CUTTER Narrative 03/15/2024 1:12 PM CASCARA BARK CUTTER EXAM DESCRIPTION: MRI ELBOW LEFT W WO [...] by Josef Gordillo M.D. T: Report ID: [id number] Reading Location: [id number] Procedure Note Josef Gordillo MD - 03/15/2024 [...] by Josef Gordillo M.D. T: Report ID: [id number] Reading Location: [id number] Ramesh Lang MD IM MRI PROCEDURES Final Result * XR Elbow Left 3+ View (02/08/2024 8:38 AM CASCARA BARK CUTTER) Anatomical Region Laterality Modality Upper Extremities, Elbow Left Compute d Radiography 02/10/2024 5:46 PM CASCARA BARK CUTTER Narrative 02/10/2024 5:49 PM CASCARA BARK CUTTER EXAM DESCRIPTION: XR ELBOW LEFT 3 OR [...] by Josef Gordillo M.D. T: Report ID: [id number] Reading Location: [id number] Procedure Note Josef Gordillo MD - 02/10/2024 [...] by Josef Gordillo M.D. T: Report ID: [id number] Reading Location: [id number] Lavern Pacheco SWIMMING POOL MAINTENANCE SUPERVISOR IMG XR PROCEDURES Final Result * Colonoscopy (12/01/2023 8:23 AM CDT) Anatomical Region Laterality Modality Other Historical Provider MD ENDOSCOPY PROCEDURES Zoe l Result * PSA [...] Almendarez LAB BLOOD ORDERABLES Fin al Result [facility] [address] [facility] [place] [address] * Hepatitis C antibody (12/13/2020 7:24 AM CDT) Hep C Ab Nonreactive Nonreactive [facility] LONG Comment: Interpretive Data Nonreactive: Antibodies to HCV [...] LAB MICROBIOLOGY - GENERAL ORDERABLES Final Result [facility] [address] [facility] Department [place] [address] from Last 3 Months or Most Recently Relevant to Health Maintenance Insurance CIGNA CIGNA Care Teams Construction Equipment Operator Relationship Specialty Start Date End Date Gadiel Shearer MD [address] [facility] [address] [address] PCP - General Family Medicine 09/22/22
--- OUTSIDE RECORDS SUMMARY | 2024-04-29 19:27 | XMS_ITS | Referral Summary ---
Author Organization [facility] Address [address] [place] [address] Care Team Providers Care Weed Cutter Name Role Phone Unavailable Primary Care Provider [...] (11/19/2020): Added automatically from request for surgery [id number] Annual physical exam 09/29/2020 Cyst of skin [...]
[2024-04-29 19:29] VITALS: BP 128/89; PULSE 104; RESP 20; TEMP 37.2; O2SAT 100
[2024-04-29 20:15] LABS: Influenza A QL RT-PCR Positive (Negative); Influenza B QL RT-PCR Negative (Negative); RSV RNA, RT-PCR Negative (Negative); SARS-CoV-2 RNA PCR Negative (Negative)
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
--- OUTSIDE RECORDS SUMMARY | 2024-04-29 23:07 | XMS_ITS | Encounter Summary ---
Author Organization [facility] Facility Care Team Providers Care Res Habilitation Assistant Name Role Phone Do Chowdary MD Primary Care Provider [phone] Gadiel Shearer MD Primary Care Provider [phone] Encounter Details Date Type Department Care Team (Latest Contact Info) Description 05/22/2015 Orders Only [facility] ProviderGinette MD [address] [place] [id number] Social History Tobacco Use Types Packs/Day Years Used Date Smoking Tobacco: Never Assessed Sex and Gender Information Value Date Recorded Sex Assigned at Not on file Legal Sex Male 3:08 AM POPULATION GENETICIST Gender Identity Not on file Sexual Orientation Not on file documented as of this encounter Plan of Treatment Upcoming Encounters Date Type Department Care Team (Latest Contact Info) Description 05/01/2024 10:15 AM [facility] Hospital Encounter [facility] [place] [address] [place] [address] Ramesh Lang MD [address] [place] [address] DR [address] [address] [place] [address] 05/01/2024 10:15 AM POPULATION GENETICIST - 05/01/2024 11:15 AM [facility] Surgery [facility] [place] [address] [place] [address] Ramesh Lang MD [address] [place] [address] [place] [address] LEFT ELBOW MASS EXCISION Scheduled Procedures Name Priority Associated Diagnoses Date/Ti me EXCISION CYST/LESION/MASS - ARM Elbow mass, left Mass of finger of right hand 05/01/2024 10:15 AM POPULATION GENETICIST EXCISION CYST/LESION/MASS - FINGER Elbow mass, left Mass of finger of right hand 05/01/2024 10:15 AM POPULATION GENETICIST documented as of this encounter Procedures Procedure Name Priority Date/Time Associated Diagnosis Comments SCAN - LABS 05/23/2015 12:00 AM POPULATION GENETICIST documented in this encounter Results * SCAN - LABS (05/23/2015 12:00 AM POPULATION GENETICIST) Narrative 05/23/2015 12:00 AM POPULATION GENETICIST Ordered by an unspecified provider. us Historical Provider Final Res ult documented in this encounter Visit Diagnoses Not on filedocumented in this encounter Care Teams Res Habilitation Assistant Relationship Specialty Start Date End Date Do Chowdary MD [address] [facility] [address] [place] [address] PCP - General Internal Medicine 12/13/20 09/21/22 Gadiel Shearer MD [address] [address] PCP - General Family Medicine 09/22/22 documented as of this encounter
--- OUTSIDE RECORDS SUMMARY | 2024-04-29 23:07 | XMS_ITS | Encounter Summary ---
Author Organization [facility] Facility Care Team Providers Care Retinal Surgeon Name Role Phone Do Chowdary MD Primary Care Provider [phone] Gadiel Shearer MD Primary Care Provider Encounter Details Date Type Department Care Team (Latest Contact Info) Description 11/11/2015 Orders Only [facility]INCON[facility] ProviderGinette MD [address] [place] [address] Social History Tobacco Use Types Packs/Day Years Used Date Smoking Tobacco: Never Sex and Gender Information Value Date Recorded Sex Assigned at Not on file Legal Sex Male 3:08 AM SERVICE DOG TRAINER Gender Identity Not on file Sexual Orientation Not on file documented as of this encounter Plan of Treatment Upcoming Encounters Date Type Department Care Team (Latest Contact Info) Description 05/01/2024 10:15 AM SERVICE DOG TRAINER Hospital Encounter [facility] [place] [address] [place] [address] Ramesh Lang MD [address] [place] [address] DR THOMPSON [address] [place] [address] 05/01/2024 10:15 AM SERVICE DOG TRAINER - 05/01/2024 11:15 AM SERVICE DOG TRAINER Surgery [facility] OR [address] [place] [address] Ramesh Lang MD [address] [place] [address] [place] [address] LEFT ELBOW MASS EXCISION Scheduled Procedures Name Priority Associated Diagnoses Date/Ti me EXCISION CYST/LESION/MASS - ARM Elbow mass, left Mass of finger of right hand 05/01/2024 10:15 AM SERVICE DOG TRAINER EXCISION CYST/LESION/MASS - FINGER Elbow mass, left Mass of finger of right hand 05/01/2024 10:15 AM SERVICE DOG TRAINER documented as of this encounter Procedures Procedure Name Priority Date/Time Associated Diagnosis Comments COLONOSCOPY - SCAN 11/11/2015 12 :00 AM CDT documented in this encounter Results * COLONOSCOPY - SCAN (11/11/2015 12:00 AM CDT) Narrative 11/11/2015 12:00 AM CDT Ordered by an unspecified provider. Historical Provider Final Res ult documented in this encounter Visit Diagnoses Not on filedocumented in this encounter Care Teams Retinal Surgeon Relationship Specialty Start Date End Date Do Chowdary MD [address] [facility] [address] [place] [address] PCP - General Internal Medicine 12/13/20 09/21/22 Gadiel Shearer MD [address] [facility] [address] [place] [address] PCP - General Family Medicine 09/22/22 documented as of this encounter
--- OUTSIDE RECORDS SUMMARY | 2024-04-29 23:07 | XMS_ITS | Clinical Summary ---
Author Organization [facility] Address [facility] [place] [address] Care Team Providers Care Shotgun Shell Assembly Machine Adjuster Name Role Phone Gadiel Shearer MD Primary Care Provider [phone] Allergies No known active allergies Medications gabapentin [...] (11/03/2022): Added automatically from request for surgery [id number] Bilateral carpal tunnel syndrome 10/05/2022 Ulnar neuropathy [...] Vaccines (1 of 2) 2021 PHQ-2 (Physician [place]) 10/06/2023 10/05/2022 COVID-19 Vaccine ( season) 2023 12/14/2021, 03/10/2021, 09/10/2020, Additional history exists Influenza Adult (#1) 2023 01/26/2019 PHQ-2 (Physician [employer]) 03/14/2024 10/05/2022 DTaP, Tdap and Td Vaccines [...] patient's age to complete this topic Insurance [facility] Care Teams Shotgun Shell Assembly Machine Adjuster Relationship Specialty Start Date End Date Gadiel Shearer MD [address] [address] PCP - General FAMILY PRACTICE 10/05/22
--- OUTSIDE RECORDS SUMMARY | 2024-04-29 23:08 | XMS_ITS | Encounter Summary ---
Author Organization [facility] Address [address] [place] [address] Care Team Providers Care Food Inspector Name Role Phone Unavailable Primary Care Provider Unavailabl e Prior Encounters Date Type Department Care Team Description 11/10/2021 5:00 PM CDT Office Visit [facility] [address] [place] [address] Duane Delgado DDS 11/10/2021 5:00 PM CDT Office Visit [facility] [address] [place] [address] Sharlene Gracia, [facility] 09/22/2021 4:00 PM CDT Office Visit [facility] [address] [place] [address] Duane Delgado DDS 07/07/2021 Travel 07/07/2021 5:00 PM CDT Office Visit [facility] [address] [place] [address] Katie Rey, DAN[facility] 06/16/2021 5:00 PM CDT Office Visit [facility] [address] [place] [address] Katie Rey DMD 04/14/2021 Travel 04/14/2021 6:00 PM RESERVE OFFICER Office Visit [facility] [address] [place] [address] Katie Rey DMD 04/14/2021 6:00 PM RESERVE OFFICER Office Visit [facility] [address] [place] [address] Sharlene Gracia, [facility] 12/02/2020 Travel 12/02/2020 4:30 PM CDT Office Visit [facility] [address] [place] [address] Katie Rey, DMD 11/19/2020 Travel 11/19/2020 1:30 PM CDT Office Visit [facility] [address] [place] [address] Katie Rey, DMD 09/02/2020 Travel 09/02/2020 6:00 PM CDT Office Visit [facility] [address] [place] [address] Sharlene Gracia, [facility] 09/02/2020 6:00 PM CDT Office Visit [facility] [address] [place] [address] Katie Rey, DMD 04/02/2019 Converted 13x Documents [facility] [address] [place] [address] <No scans attached> 04/02/2019 Converted 13x Documents [facility] [address] [place] [phone] <No scans attached> 04/02/2019 Converted CPS Chart Documents [facility] [address] [place] [phone] <No scans attached> 04/02/2019 Converted 13x Documents [facility] [address] [place] [phone] <No scans attached> Last Filed Vital Signs [...] - ESTABLISHED PATIENT Routine 04/14/2021 6:00 PM RESERVE OFFICER TOPICAL APPLICATION OF FLUORIDE VARNISH Routine 04/14/2021 6:00 PM RESERVE OFFICER ORAL HYGIENE INSTRUCTIONS Routine 2021 6:00 PM RESERVE OFFICER PERIO MAINTENANCE Routine 04/14/2021 6:0 0 PM RESERVE OFFICER BITEWINGS - FOUR RADIOGRAPHIC IMAGES Routine 04/14/2021 6:00 PM RESERVE OFFICER NC X-RAY Routine 12/02/2020 4:30 PM CDT [...] PERIO MAINTENANCE Routine 04/26/2020 2:0 0 AM RESERVE OFFICER ORAL HYGIENE INSTRUCTIONS Routine 2020 2:00 AM RESERVE OFFICER 19 EXTRACTION, ERUPTED TOOTH REQUIRING REMOVAL OF BONE AND/OR SECTIONING OF TOOTH Routine 03/19/2020 2:00 AM RESERVE OFFICER 14 EXTRACTION, ERUPTED TOOTH REQUIRING REMOVAL OF BONE AND/OR SECTIONING OF TOOTH Routine 03/19/2020 2:00 AM RESERVE OFFICER 12 EXTRACTION, ERUPTED TOOTH REQUIRING REMOVAL OF BONE AND/OR SECTIONING OF TOOTH Routine 03/19/2020 2:00 AM RESERVE OFFICER OFFICE VISIT FOR OBSERVATION (DURING REGULARLY SCHEDULED HOURS) - NO OTHER SERVICES PERFORMED Routine 03/19/2020 2:00 AM RESERVE OFFICER MISSED APPOINTMENT Routine 03/10/2020 2: 00 AM RESERVE OFFICER UR PERIODONTAL SCALING AND ROOT PLANING - [...] 4 ENDODONTIC THERAPY, PREMOLAR TOOTH (EXCLUDING FINAL PENTECOSTAL) Routine 11/13/2019 2:00 AM CDT 4 CROWN [...]
--- OUTSIDE RECORDS SUMMARY | 2024-04-29 23:08 | XMS_ITS | Clinical Summary ---
Author Organization [facility] Address [address] [place] [address] Care Team Providers Care Policy Specialist Name Role Phone Gadiel Shearer MD Primary Care Provider [phone] Allergies Active Allergy Reactions Criticality Noted Date [...] (10/15/2020): Added automatically from request for surgery [id number] Chronic rhinitis 04/04/2018 Insomnia 04/04/2018 Anemia 06/03/2015 Unspecified urinary incontinence 06/03/2015 Resolved Problems Problem Noted Date Diagnosed Date Resolved Date Annual physical exam 09/29/2020 023 Cyst of skin and subcutaneous tissue 09/12/2019 09/22/2022 Neck pain 07/10/2019 09/22/2022 Shortness of breath 04/19/2019 07/12/19 20 Encounters Date Type Department Care Team Description 04/27/2024 Orders Only [facility] Pre Admit Testing [address] [place] [address] Génesis Perez RN Pre-op testing (Primary Dx) 04/26/2024 Telephone [facility] [address] [facility] [address] [place] [address] Ramesh Lang MD work note 04/25/2024 Telephone [facility] [address] [place] [phone] Ramesh Lang MD [facility] paperwork 04/23/2024 Telephone [facility] [address] [place] [phone] Ramesh Lang MD FMWV status 04/18/2024 7:30 AM BOX TRUCK WASHER Office Visit [facility] [address] [place] [phone] Ramesh Lang MD Elbow mass, left (Primary Dx); Pyogenic granuloma 04/18/2024 Telephone [facility] [address] [place] [address] [address] [place] [address] Ramesh Lang MD FMLA 03/28/2024 7:30 AM BOX TRUCK WASHER Office Visit [facility] [address] [place] [phone] Ramesh Lang MD Left elbow pain (Primary Dx); Elbow mass, left; Pyogenic granuloma 03/15/2024 7:26 AM BOX TRUCK WASHER - 03/15/2024 11:59 PM BOX TRUCK WASHER Hospital Encounter [facility] MRI [address] [place] [address] Left elbow pain Discharge Disposition: Discharge to home or self care 02/24/2024 Telephone [facility] at [address] [address] Gadiel Shearer MD Recommendation Request 02/08/2024 8:24 AM BOX TRUCK WASHER - 02/08/2024 11:59 PM BOX TRUCK WASHER Hospital Encounter [facility] Imaging [address] [place] [address] Left elbow pain Discharge Disposition: Discharge to home or self care 02/08/2024 7:45 AM BOX TRUCK WASHER Office Visit [facility] [address] [place] [phone] Ramesh Lang MD Left elbow pain (Primary Dx); Avulsion of skin of finger, subsequent encounter; Elbow mass, left 02/01/2024 7:30 AM BOX TRUCK WASHER Office Visit [facility] [address] [place] [phone] Ramesh Lang MD Avulsion of skin of [...] on file Legal Sex Male 3:08 AM BOX TRUCK WASHER Gender Identity Not on file Sexual Orientation Not on file Obstetrics History Last Filed Vital Signs Vital Sign Reading Time Taken Comments Blood Pressure 114/68 01/26/2024 10:37 AM BOX TRUCK WASHER Pulse 70 01/26/2024 10:37 AM BOX TRUCK WASHER Temperature 36.2 C (97.1 F) 01/26/2024 10:37 AM BOX TRUCK WASHER Respiratory Rate 18 01/26/2024 10:37 AM BOX TRUCK WASHER Oxygen Saturation 97% 01/26/2024 10:37 AM BOX TRUCK WASHER Inhaled Oxygen Concentration - - Weight 102.1 kg (225 lb) 04/24/2024 12:01 PM BOX TRUCK WASHER Height 200.7 cm (6' 7 ) 04/24/2024 12:01 PM BOX TRUCK WASHER Body Mass Index 25.35 04/24/2024 12:01 PM BOX TRUCK WASHER Plan of Treatment Upcoming Encounters Date Type Department Care Team (Latest Contact Info) Description 05/01/2024 10:15 AM BOX TRUCK WASHER Hospital Encounter [facility] OR [address] [place] [address] [facility]ames[facility] MD [facility] [place] [address] 05/01/2024 10:15 AM BOX TRUCK WASHER - 05/01/2024 11:15 AM BOX TRUCK WASHER Surgery [facility] [place] [address] [place] [address] Ramesh Lang MD [address] [place] [address] LEFT ELBOW MASS EXCISION Scheduled Procedures Name Priority Associated Diagnoses Date/Ti me EXCISION CYST/LESION/MASS - ARM Elbow mass, left Mass of finger of right hand 05/01/2024 10:15 AM BOX TRUCK WASHER EXCISION CYST/LESION/MASS - FINGER Elbow mass, left Mass of finger of right hand 05/01/2024 10:15 AM BOX TRUCK WASHER Health Maintenance Due Date Last Done Comments [...] this topic Medical Devices Implanted Type Area Metal Products Fabricator Assembler Device Identifier Shelf Expiration Date Model / Serial / Lot [employer]/C R Bard Mesh Surgical Inguinal Hernia Synthetic Patch 3dmax 4x6in [id number] - [id number] Implanted:Qty: 1 on 02/07/2023 by Gerry Evans MD at [facility] Mesh Left: Inguinal [employer]/C R Bard [id number] 12/09/2026 [id number] / / [id number] Procedures Procedure Name Priority Date/Time Associated Diagnosis Comments HI ARTHROCENTESIS ASPIR&/INJ INTERM JT/BURS W/O US Routine 03/28/2024 7:30 AM BOX TRUCK WASHER Left elbow pain Elbow mass, left MRI ELBOW LEFT W WO CONTRAST Schedule Routine, Read Routine (OP Routine) 03/15/2024 9:15 AM BOX TRUCK WASHER Left elbow pain XR ELBOW LEFT 3 OR MORE VIEWS Schedule Routine, Read Routine (OP Routine) 02/08/2024 8:38 AM BOX TRUCK WASHER Left elbow pain COLONOSCOPY Routine 12/01/2023 8:23 AM CDT PSA SCREEN Routine 09/25/2022 6:31 AM CDT Screening for prostate cancer HEPATITIS C ANTIBODY Routine 12/13/2020 7:24 AM CDT from Last 3 Months or Most Recently Relevant to Health Maintenance Results * HI ARTHROCENTESIS ASPIR&/INJ INTERM JT/BURS W/O US (03/28/2024 7:30 AM BOX TRUCK WASHER) Narrative Ramesh Lang MD - 03/28/2024 7:30 AM BOX TRUCK WASHER Ramesh Lang MD 03/28/2024 8:25 AM Medium [...] Left W WO Contrast (03/15/2024 9:15 AM BOX TRUCK WASHER) Anatomical Region Laterality Modality Upper Extremities Left Magnetic Reson ance 03/15/2024 1:02 PM BOX TRUCK WASHER Narrative 03/15/2024 1:12 PM BOX TRUCK WASHER EXAM DESCRIPTION: MRI ELBOW LEFT W WO [...] by Josef Gordillo M.D. T: Report ID: [id number] Reading Location: [id number] Procedure Note Josef Gordillo MD - 03/15/2024 [...] by Josef Gordillo M.D. T: Report ID: [id number] Reading Location: [place] [address] Ramesh Lang MD [facility] MRI PROCEDURES Final Result * XR Elbow Left 3+ View (02/08/2024 8:38 AM BOX TRUCK WASHER) Anatomical Region Laterality Modality Upper Extremities, Elbow Left Compute d Radiography 02/10/2024 5:46 PM BOX TRUCK WASHER Narrative 02/10/2024 5:49 PM BOX TRUCK WASHER EXAM DESCRIPTION: XR ELBOW LEFT 3 OR [...] by Josef Gordillo M.D. T: Report ID: [id number] Reading Location: [id number] Procedure Note Josef Gordillo MD - 02/10/2024 [...] by Josef Gordillo M.D. T: Report ID: [id number] Reading Location: [id number] Lavern Pacheco NP IMG XR PROCEDURES Final [...] ORDERABLES Fin al Result Performing Organization Address [facility] Co de Phone Number KIRK [address] [facility] [place] [address] * Hepatitis C antibody (12/13/2020 7:24 AM [...] GENERAL ORDERABLES Final Result Performing Organization Address [facility] Co de Phone Number KIRK [address] [facility] [place] [address] from Last 3 Months or Most Recently Relevant to Health Maintenance Insurance [employer] Care Teams Policy Specialist Relationship Specialty Start Date End Date Gadiel Shearer MD [address] [facility] [address] [place] [address] PCP - General Family Medicine 09/22/22
--- OUTSIDE RECORDS SUMMARY | 2024-04-29 23:08 | XMS_ITS | Referral Summary ---
Author Organization [facility] Address [address] [place] [address] Care Team Providers Care Car Repairer Apprentice Name Role Phone Unavailable Primary Care Provider [...] (11/19/2020): Added automatically from request for surgery [id number] Annual physical exam 09/29/2020 Cyst of skin [...]
--- OUTSIDE RECORDS SUMMARY | 2024-04-29 23:08 | XMS_ITS | Referral Summary ---
Author Organization [facility] Address [address] [place] [address] Care Team Providers Care Corrections Specialist Name Role Phone Gadiel Shearer MD Primary Care Provider [phone] Encounters Date Type Department Care Team Description 04/27/2024 Orders Only [facility] Pre Admit Testing [address] [place] [address] Génesis Perez RN Pre-op testing (Primary Dx) 04/26/2024 Telephone [facility] Hand Surgery [address] [facility] [address] [place] [phone] Ramesh Lang MD work note 04/25/2024 Telephone [facility] Hand Surgery [address] [place] [phone] Ramesh Lang MD [facility] paperwork 04/23/2024 Telephone [facility] Hand Surgery [address] [place] [address] [address] [place] [address] Ramesh Lang MD [facility] status 04/18/2024 Telephone [facility] Orthopedics and Sports Medicine [address] [place] [address] [address] [place] [address] Ramesh Lang MD [facility] 04/18/2024 7:30 AM HOLE DIGGER Office Visit [facility] Hand Surgery [address] [place] [address] [address] [place] [phone] Ramesh Lang MD Elbow mass, left (Primary Dx); Pyogenic granuloma 03/28/2024 7:30 AM HOLE DIGGER Office Visit [facility] Hand Surgery [address] [place] [phone] Ramesh Lang MD Left elbow pain (Primary Dx); Elbow mass, left; Pyogenic granuloma 03/15/2024 7:26 AM HOLE DIGGER - 03/15/2024 11:59 PM HOLE DIGGER Hospital Encounter [facility] MRI [address] [place] [address] Left elbow pain Discharge Disposition: Discharge to home or self care 02/24/2024 Telephone [facility] Family Medicine at [address] [address] Gadiel Shearer MD Recommendation Request 02/08/2024 8:24 AM HOLE DIGGER - 02/08/2024 11:59 PM HOLE DIGGER Hospital Encounter [facility] Diag Imaging [address] [place] [address] Left elbow pain Discharge Disposition: Discharge to home or self care 02/08/2024 7:45 AM HOLE DIGGER Office Visit [facility] Hand Surgery [address] [place] [phone] Ramesh Lang MD Left elbow pain (Primary Dx); Avulsion of skin of finger, subsequent encounter; Elbow mass, left 02/01/2024 7:30 AM HOLE DIGGER Office Visit [facility] Hand Surgery [address] [place] [phone] Ramesh Lang MD Avulsion of skin of [...] (10/15/2020): Added automatically from request for surgery [id number] Chronic rhinitis 04/04/2018 Insomnia 04/04/2018 Anemia 06/03/2015 [...] on file Legal Sex Male 3:08 AM HOLE DIGGER Gender Identity Not on file Sexual Orientation Not on file Last Filed Vital Signs Vital Sign Reading Time Taken Comments Blood Pressure 114/68 01/26/2024 10:37 AM HOLE DIGGER Pulse 70 01/26/2024 10:37 AM HOLE DIGGER Temperature 36.2 C (97.1 F) 01/26/2024 10:37 AM HOLE DIGGER Respiratory Rate 18 01/26/2024 10:37 AM HOLE DIGGER Oxygen Saturation 97% 01/26/2024 10:37 AM HOLE DIGGER Inhaled Oxygen Concentration - - Weight 102.1 kg (225 lb) 04/24/2024 12:01 PM HOLE DIGGER Height 200.7 cm (6' 7 ) 04/24/2024 12:01 PM HOLE DIGGER Body Mass Index 25.35 04/24/2024 12:01 PM HOLE DIGGER Plan of Treatment Upcoming Encounters Date Type Department Care Team (Latest Contact Info) Description 05/01/2024 10:15 AM HOLE DIGGER Hospital Encounter [facility] OR [address] [place] [address] Ramesh Lang MD [address] [facility] [address] [address] [place] [address] 05/01/2024 10:15 AM HOLE DIGGER - 05/01/2024 11:15 AM HOLE DIGGER Surgery [facility] [place] [address] [place] [address] Ramesh Lang MD [facility] [facility] [address] [place] [address] [place] [address] LEFT ELBOW MASS EXCISION Scheduled Procedures Name Priority Associated Diagnoses Date/Ti me EXCISION CYST/LESION/MASS - ARM Elbow mass, left Mass of finger of right hand 05/01/2024 10:15 AM HOLE DIGGER EXCISION CYST/LESION/MASS - FINGER Elbow mass, left Mass of finger of right hand 05/01/2024 10:15 AM HOLE DIGGER Medical Devices Implanted Type Area Hardwood Floor Finisher Device Identifier Shelf Expiration Date Model / Serial / Lot [employer] R Bard Mesh Surgical Inguinal Hernia Synthetic Patch 3dmax 4x6in [id number] - [id number] Implanted:Qty: 1 on 02/07/2023 by Gerry Evans MD at [facility] Mesh Left: Inguinal [employer] [id number] 12/09/2026 [id number] / / [id number] Procedures Procedure Name Priority Date/Time Associated Diagnosis Comments ME ARTHROCENTESIS ASPIR&/INJ INTERM JT/BURS W/O US Routine 03/28/2024 7:30 AM HOLE DIGGER Left elbow pain Elbow mass, left MRI ELBOW LEFT W WO CONTRAST Schedule Routine, Read Routine (OP Routine) 03/15/2024 9:15 AM HOLE DIGGER Left elbow pain XR ELBOW LEFT 3 OR MORE VIEWS Schedule Routine, Read Routine (OP Routine) 02/08/2024 8:38 AM HOLE DIGGER Left elbow pain COLONOSCOPY Routine 12/01/2023 8:23 AM CDT PSA SCREEN Routine 09/25/2022 6:31 AM CDT Screening for prostate cancer HEPATITIS C ANTIBODY Routine 12/13/2020 7:24 AM CDT from Last 3 Months or Most Recently Relevant to Health Maintenance Results * ME ARTHROCENTESIS ASPIR&/INJ INTERM JT/BURS W/O US (03/28/2024 7:30 AM HOLE DIGGER) Narrative Ramesh Lagn MD - 03/28/2024 7:30 AM HOLE DIGGER Ramesh Lang MD 03/28/2024 8:25 AM Medium [...] Left W WO Contrast (03/15/2024 9:15 AM HOLE DIGGER) Anatomical Region Laterality Modality Upper Extremities Left Magnetic Reson ance 03/15/2024 1:02 PM HOLE DIGGER Narrative 03/15/2024 1:12 PM HOLE DIGGER EXAM DESCRIPTION: MRI ELBOW LEFT W WO [...] by Josef Gordillo M.D. T: Report ID: [id number] Reading Location: [id number] Procedure Note Josef Gordillo MD - 03/15/2024 [...] by Josef Gordillo M.D. T: Report ID: [id number] Reading Location: [id number] Ramesh Lang MD IM MRI PROCEDURES Final Result * XR Elbow Left 3+ View (02/08/2024 8:38 AM HOLE DIGGER) Anatomical Region Laterality Modality Upper Extremities, Elbow Left Compute d Radiography 02/10/2024 5:46 PM HOLE DIGGER Narrative 02/10/2024 5:49 PM HOLE DIGGER EXAM DESCRIPTION: XR ELBOW LEFT 3 OR [...] by Josef Gordillo M.D. T: Report ID: [id number] Reading Location: [id number] Procedure Note Josef Gordlilo MD - 02/10/2024 EXAM DESCRIPTION: XR ELBOW [...] by Josef Gordillo M.D. T: Report ID: [id number] Reading Location: [id number] Lavern Pacheco TENTS ASSEMBLER IMG XR PROCEDURES Final Result * Colonoscopy [...] LAB BLOOD ORDERABLES Fin al Result [facility] [address] [facility] [place] [address] * Hepatitis C antibody (12/13/2020 7:24 AM [...] MICROBIOLOGY - GENERAL ORDERABLES Final Result KIRK [address] [facility] [place] [address] from Last 3 Months or Most Recently Relevant to Health Maintenance Insurance CIGNA CIGNA Care Teams Corrections Specialist Relationship Specialty Start Date End Date Gadiel Shearer MD [address] [facility] [address] [address] PCP - General Family Medicine 09/22/22
--- OUTSIDE RECORDS SUMMARY | 2024-04-29 23:08 | XMS_ITS | Clinical Summary ---
Author Organization [facility] Address [address] [place] [address] Care Team Providers Care Shooting Gallery Operator Name Role Phone Unavailable Primary Care Provider [...] (11/19/2020): Added automatically from request for surgery [id number] Annual physical exam 09/29/2020 Cyst of skin [...]
--- OUTSIDE RECORDS SUMMARY | 2024-04-29 23:08 | XMS_ITS | CCD ---
Author Organization [facility] Address [address] [place] [address] Care Team Providers Care Worksite Wellness Practitioner Name Role Phone Unavailable Primary Care Provider [...] (11/19/2020): Added automatically from request for surgery [id number] Annual physical exam 09/29/2020 Cyst of skin [...]
--- OUTSIDE RECORDS SUMMARY | 2024-04-29 23:08 | XMS_ITS ---
Author Organization [facility] Address [address] [place] [address] Care Team Providers Care Home Health Aide Name Role Phone Unavailable Unavailable Unavailable Surgery Details Not on file Complications Check Surgery Details section. Procedure Estimated Blood Loss Check Surgery Details section. Procedure Findings Check Surgery Details section. Procedure Specimens Taken Check Surgery Details section.
--- OUTSIDE RECORDS SUMMARY | 2024-04-29 23:08 | XMS_ITS | Encounter Summary ---
Author Organization [facility] Healthcare Address [address] [place] [address] Care Team Providers Care Painter Airbrush Name Role Phone Gadiel Shearer MD Primary Care Provider [phone] Reason for Visit * Reason Onset Date Comments work note 04/26/2024 Encounter Details Date Type Department Care Team (Late st Contact Info) Description 04/26/2024 Telephone [facility] Medical Group Hand Surgery [facility] [address] [place] [phone] Ramesh Lang MD [facility] [address] [address] work note Social History Tobacco [...] on file Legal Sex Male 3:08 AM DEICER REPAIRER PNEUMATIC Gender Identity Not on file Sexual Orientation Not on file documented as of this encounter Miscellaneous Notes * Telephone Encounter - Alivia Bruno MA - 04/27/2024 6:51 AM CST This was done. ER REPAIRER PNEUMATIC * Telephone Encounter - Coreen Feldman - 04/26/2024 11:02 AM CST Pt needs a note faxed to his employer stating he will be having hand surg may 01-may 14- Needs this done today or tomorrow ER REPAIRER PNEUMATIC documented in this encounter Plan of Treatment Upcoming Encounters Date Type Department Care Team (Latest Contact Info) Description 05/01/2024 10:15 AM DEICER REPAIRER PNEUMATIC Hospital Encounter [facility] [place] [address] [place] [address] Ramesh Lang MD [address] [place] [address] [address] [place] [address] 05/01/2024 10:15 AM DEICER REPAIRER PNEUMATIC - 05/01/2024 11:15 AM DEICER REPAIRER PNEUMATIC Surgery [facility] [place] [address] [place] [address] Ramesh Lang MD [address] [place] [address] DR [address] [place] [address] LEFT ELBOW MASS EXCISION Scheduled Procedures Name Priority Associated Diagnoses Date/Ti co EXCISION CYST/LESION/MASS - ARM Elbow mass, left Mass of finger of right hand 05/01/2024 10:15 AM DEICER REPAIRER PNEUMATIC EXCISION CYST/LESION/MASS - FINGER Elbow mass, left Mass of finger of right hand 05/01/2024 10:15 AM DEICER REPAIRER PNEUMATIC documented as of this encounter Visit Diagnoses Not on filedocumented in this encounter Care Teams Painter Airbrush Relationship Specialty Start Date End Date Gadiel Shearer MD [address] [facility] [address] [address] PCP - General Family Medicine 09/22/22 documented as of this encounter
--- OUTSIDE RECORDS SUMMARY | 2024-04-29 23:08 | XMS_ITS | Encounter Summary ---
Author Organization [facility] Healthcare Address [address] [place] [address] Care Team Providers Care Baker Biscuit Name Role Phone Gadiel Shearer MD Primary Care Provider [phone] Reason for Referral * Cardiology (Routine) - Authorized Specialty Diagnoses / Procedures Referred By Contac t Referred To Contact Diagnoses Pre-op testing Procedures ECG 12 lead Abdelrahman Lorenzo MD [address] [place] [address] Phone: tel:[phone] fax: [address] [address] Referral ID Status Reason Start Date Expiration Date V isits Requested Visits Authorized [id number] Authorized 04/27/2024 05/27/2025 1 1 ED WALL FOREMAN Encounter Details Date Type Department Care Team (Late st Contact Info) Description 04/27/2024 Orders Only [facility] Pre Admit Testing [address] [place] [phone] Génesis Perez RN Pre-op testing (Primary Dx) [...] on file Legal Sex Male 3:08 AM POURED WALL FOREMAN Gender Identity Not on file Sexual Orientation Not on file documented as of this encounter Plan of Treatment Upcoming Encounters Date Type Department Care Team (Latest Contact Info) Description 05/01/2024 10:15 AM POURED WALL FOREMAN Hospital Encounter [facility] [place] [address] [place] [address] Ramesh Lang MD [facility] [address] [address] [place] [address] 05/01/2024 10:15 AM POURED WALL FOREMAN - 05/01/2024 11:15 AM POURED WALL FOREMAN Surgery [facility] OR [address] [place] [address] Ramesh Lang MD [facility] [address] [place] [address] [place] [address] LEFT ELBOW MASS EXCISION Scheduled Orders Name Type Priority Associated Diagnoses Orde r Schedule ECG 12 lead ECG Routine Pre-op testing Expected: 04/30/2024, Expires: 04/27/2025 Scheduled Procedures Name Priority Associated Diagnoses Date/Ti me EXCISION CYST/LESION/MASS - ARM Elbow mass, left Mass of finger of right hand 05/01/2024 10:15 AM POURED WALL FOREMAN EXCISION CYST/LESION/MASS - FINGER Elbow mass, left Mass of finger of right hand 05/01/2024 10:15 AM POURED WALL FOREMAN documented as of this encounter Visit Diagnoses Diagnosis Mass of finger of right hand- Primary Localized superficial swelling, mass, or lump Elbow mass, left Pre-op testing- Primary Unspecified pre-operative examination Elbow mass, left Mass of finger of right hand Localized superficial swelling, mass, or lump documented in this encounter Care Teams Baker Biscuit Relationship Specialty Start Date End Date Gadiel Shearer MD [address] [facility] [address] [place] [address] [place] [address] PCP - General Family Medicine 09/22/22 documented as of this encounter
[2024-04-29] MEDS: ACETAMINOPHEN 500 MG TABLET 1000 MG PO (23:17)
[2024-04-29] MEDS: IBUPROFEN 400 MG TABLET 800 MG PO (23:17)
[2024-04-29] MEDS: OSELTAMIVIR PHOSPHATE 75 MG CAPSULE PO (23:17)
[2024-04-29] MEDS: CIPROFLOXACIN HC OTIC 10 ML 3 DROP EACH EAR (23:17)
[2024-04-29 23:29] VITALS: BP 124/78; PULSE 93; RESP 18; TEMP 37.3; O2SAT 98
== END 2024-04-29 23:31 | disposition home or self-care (01) ==
LOC: ANHED 23:06
PROVIDERS: Emergency Medicine; Emergency Provider Physician Assistant; PCP Family Medicine
DX: J11.1 Influenza due to unidentified influenza virus with other respiratory manifestations (principal); Z20.822 Contact with and (suspected) exposure to COVID-19
CPT/HCPCS: 87637; 99283; A9270